=== PATIENT | male | born 1960 ===

== ENCOUNTER 2023-02-23 08:44 | Emergency (ER) | payer OTHER ==
[~2023-02-23] VITALS: Ht 170.2 cm; Wt 80.9 kg
[2023-02-23 08:57] VITALS: TEMP 98
[2023-02-23] MEDS ORDERED: CYCLOBENZAPRINE HCL 10 MG TABLET PO ONE (09:15)
[2023-02-23] MEDS ORDERED: IBUPROFEN 600 MG TABLET PO ONE (09:15)
[2023-02-23] MEDS ORDERED: CYCL-448 PO (09:56)
[2023-02-23] MEDS ORDERED: IBUP-1492 PO (09:56)
[2023-02-23 10:11] VITALS: BP 138/95; PULSE 67; RESP 18
== END 2023-02-23 10:23 | disposition home or self-care (01) ==
LOC: EMS 08:46 → EDBD 08:46 → EMS 10:23
DX: S16.1XXA Strain of muscle, fascia and tendon at neck level, initial encounter (principal); I10 Essential (primary) hypertension; V89.2XXA Person injured in unspecified motor-vehicle accident, traffic, initial encounter; Y93.89 Activity, other specified; Y92.89 Other specified places as the place of occurrence of the external cause; Y99.8 Other external cause status
CPT/HCPCS: 99283